=== PATIENT | female | born 1965 | race African-American/Black ===

== ENCOUNTER 2016-04-20 08:46 | Emergency (ER) | payer MEDICARE ==
[2016-04-20] MEDS ORDERED: OPTIRAY 350 100 ML VIAL HMH IV ONE (08:47)
[2016-04-20] MEDS ORDERED: METHYLPRED SOD SUCC 125 MG/2 ML VIAL ONE (09:04)
[2016-04-20] MEDS ORDERED: DUONEB INH ONE ×3 (09:13→09:19)
== END 2016-04-20 13:00 | disposition home or self-care (01) ==
LOC: ER 08:46
DX: J20.9 Acute bronchitis, unspecified (principal); R09.1 Pleurisy; Z79.899 Other long term (current) drug therapy; R79.1 Abnormal coagulation profile; J84.9 Interstitial pulmonary disease, unspecified
CPT/HCPCS: 36415; 71020; 71260; 80053; 82553; 83880; 84484; 84703; 85025; 85379; 85610; 85730; 94640; 96374; 96375; 99285; J1885; J2930; Q9967